=== PATIENT | female | born 1990 | race Caucasian/White ===

== ENCOUNTER 2016-11-04 22:05 | Emergency (ER) | payer MEDICAID ==
[~2016-11-04] VITALS: Ht 172.7 cm; Wt 69.1 kg
[2016-11-04 22:26] VITALS: BP 150/102; PULSE 101; RESP 20; TEMP 99.2; O2SAT 100
[2016-11-05] MEDS ORDERED: BACT800T5 PO (00:39)
--- NOTE | 2016-11-05 00:39 | PD ---
HPI Chief Complaint: Skin Problem Time Seen by Provider: 00:31 Travel History International Travel<30 days: No Contact w/Intl Traveler<30days: No Traveled to known affect area: No History of Present Illness HPI 26-year-old female arrives with rash above the right eyebrow and along the right wrist and along the fifth digit of the left hand. She thinks she may have been stung by an insect. She reports a subjective fever throughout the day. The lesions are somewhat itchy. She's had no shortness of breath or chest pain. The patient woke up with the rash. She has no past medical history. She has no past surgical history. She takes no medication aside from control pills. She has no allergies. PFSH Past Medical History LMP: 2 MONTHS AGO Social History Tobacco Use: No Allergies-Medications (Allergen,Severity, Reaction): Coded Allergies: No Known Allergies (Unverified , 11/05/16) Reported Meds & Prescriptions Reported Meds & Active Scripts Active Bactrim DS (Sulfamethoxazole-Trimethoprim) 800-160 Mg Tab 1 Tab PO BID Review of Systems General / Constitutional: No: Fever, Chills Respiratory: No: Cough, Shortness of Breath Physical Exam Narrative GENERAL: 26-year-old female pleasant no acute distress SKIN: Warm and dry. There is minimal swelling and erythema overlying the right eyebrow with trace edema involving the supraorbital ridge and right upper eyelid. There is about 3 cm of erythema along the volar aspect of the DRUJ on the right side. There is trace erythema of the distal phalanx of the fifth digit on the left hand. The skin lesions popeye. There is no fluctuance. HEAD: Atraumatic. Normocephalic. MUSCULOSKELETAL: No obvious deformities. No clubbing. No cyanosis. No edema. PULMONARY: No dyspnea. Lung sounds clear. Data Data Last Documented VS Vital Signs Date Time Temp Pulse Resp B/P Pulse Ox O2 Delivery O2 Flow Rate FiO2 11/04/16 22:26 99.2 101 20 150/102 100 Vital signs reviewed Orders Dexamethasone Inj (Decadron Inj) (11/05/16 00:45) Sulfamet-Trimeth Ds 800-160 Mg (Bactrim (11/05/16 00:45) MDM Medical Decision Making Medical Screen Exam Complete: Yes Emergency Medical Condition: Yes Differential Diagnosis Dermatitis, cellulitis, insect bite Narrative Course Lesions are considered to be inflammatory or infectious in nature. We'll prescribe a course of Bactrim and provided dose of Decadron here. Return precautions discussed. PT agreeable with plan. Diagnosis Primary Impression: Dermatitis Referrals: Primary Care Physician 2 days Additional Instructions: You have a choice when it comes to health care, and we are glad that you chose [facility]. Hopefully, we have met your expectations on today's visit. You are welcome to return to [facility] at any time, as we are committed to meeting the health care needs of our community. Med/Other Pt SpecificInfo: Prescription(s) given Scripts Sulfamethoxazole-Trimethoprim (Bactrim DS)800-160 Mg Tab1 Tab PO BID #20 TAB Ref 0 Prov:Charlie Mcfarlane MD 11/05/16 Disposition: 01 DISCHARGE HOME Condition: Stable Charlie Mcfarlane MD Nov 05, 2016 00:39
[2016-11-05] MEDS ORDERED: SULFAMETHOXAZOLE-TRIMETHOPRIM DS 800-160 MG TAB PO ONE (00:45)
[2016-11-05] MEDS ORDERED: DEXAMETHASONE SOD PHOS 4 MG/ML VIAL IM ONE (00:45)
== END 2016-11-05 01:20 | disposition home or self-care (01) ==
LOC: PHED 22:05 → PHEFT 11-05 01:20
DX: L30.9 Dermatitis, unspecified (principal)
CPT/HCPCS: 96374; 99282; J1100